=== PATIENT | female | born 1995 | race Caucasian/White ===

== ENCOUNTER 2023-03-17 15:40 | Emergency (ER) | payer OTHER, SELFPAY ==
[2023-03-17 15:49] VITALS: BP 115/55; PULSE 88; RESP 18; TEMP 36; O2SAT 98; BMI 28.3
--- NOTE | 2023-03-17 16:12 | DI.CT.S_ITS ---
PROCEDURE: CT KIDNEY URETER BLADDER (KUB) INDICATIONS: flank pain left TECHNIQUE: Axial sections were acquired from the lung bases to the pubic symphysis. Coronal and sagittal reformats were performed. For radiation dose reduction, the following was used: automated exposure control, adjustment of mA and/or kV according to patient size. COMPARISON: None. FINDINGS: Image quality: Good Lower chest: Minimal basal atelectasis. No hiatal hernia. Normal heart size partially seen. Solid organs: Liver is unremarkable on this noncontrast study. Gallbladder is unremarkable. No pathologic dilation of the biliary tree or pancreatic duct. No splenomegaly. No adrenal nodules. No hydronephrosis on the right. No calcified stones on the right. Mild left perinephric and periureteral fat stranding and hydronephrosis. A 2 mm stone is seen at the left UVJ. Vessels and lymph nodes: No pathologic lymph nodes by size criteria. No abdominal aortic aneurysm. Bowel and peritoneum: Mildly distended stomach. No evidence of small bowel obstruction. Normal diameter appendix. No abscess or ascites. Body wall: Unremarkable Pelvis: Mild bladder wall thickening, but not well evaluated due to under distension. Reproductive organs are not well evaluated on this study, overall physiologic appearing. Bones: No acute or suspicious osseous finding. IMPRESSION: Mild left periureteral and perinephric fat stranding with hydronephrosis secondary to a 2 mm left UVJ calcified obstructing stone. Mild bladder wall thickening, difficult to evaluate due to under distension. Correlate with urinalysis to assess for superimposed infection. Other findings as above. Dictated by: Trung Cardoza M.D. on 03/17/2023 at 16:49 Approved by: Trung Cardoza M.D. on 03/17/2023 at 16:53
[2023-03-17 18:08] LABS: Add Manual Diff / Slide Review NO; Basophils Absolute Auto 0 /uL (0-100); Basophils Percent Auto 0.3 % (0-2); Eosinophils Absolute Auto 0 /uL (0-450); Hematocrit 43.1 % (36-46); Hemoglobin 14.8 g/dL (12.0-16.0); Lymphocytes Absolute Auto 1000 /uL (1100-4500); Lymphocytes Percent Auto 7.9 % (25-40); Mean Corpuscular HGB Conc 34.3 % (30-36); Mean Corpuscular Hemoglobin 29.2 PG (26-34); Monocytes Absolute Auto 700 /uL (0-900); Monocytes Percent Auto 5.3 % (3-14); Neutrophils Absolute Auto 10800 /uL (1500-7000); Neutrophils Percent Auto 86.5 % (50-75); Platelet Count 235 X10^3/uL (150-400); Red Blood Cell Count 5.07 X10^6/uL (4.0-5.2); Red Cell Distribution Width 13.3 % (11.6-14.8); White Blood Cell Count 12.5 X10^3/uL (4.5-11.0)
--- NOTE | 2023-03-17 18:37 | ED_ITS ---
HPI - Abdominal Pain General Chief Complaint: Abdominal Pain Stated Complaint: Lt Flank Pain Time Seen by Provider: 03/17/23 17:39 Source: patient and family Mode of arrival: EMS History of Present Illness HPI narrative: 27-year-old female smoker with history of recurrent UTIs presents by air medical transport for evaluation of left flank pain which started today. She would initially presented to an outside facility in had labs drawn and urine which was negative for signs of infection and . They have concern for kidney stone and there CTs down so she was flown here for further evaluation. Her pain is severe and colicky in nature without obvious provocation or palliation. It radiates down into her groin. She denies vaginal bleeding or discharge. She is had no dysuria, frequency or urgency. She has had nausea and occasional vomiting. Prior to her arrival she had some Toradol and Dilaudid. Related Data Previous Rx's Medication Instructions Recorded cephalexin 500 mg capsule 500 mg PO Q6H 7 days #28 caps 03/17/23 hydrocodone 5 mg-acetaminophen 325 1 tab PO Q4-6H PRN pain #10 tabs 03/17/23 mg tablet ketorolac 10 mg tablet 10 mg PO Q6H PRN pain #14 tabs 03/17/23 ondansetron 4 mg disintegrating 4 mg PO TID-QID PRN nausea and 03/17/23 tablet vomiting #10 tabs tamsulosin 0.4 mg capsule (Flomax) 0.4 mg PO DAILY #30 caps 03/17/23 Allergies Allergy/AdvReac Type Severity Reaction Status Date / Time No Known Drug Allergies Allergy Verified 03/17/23 15:49 Review of Systems Review of Systems Narrative: GENERAL: Denies chills, fatigue, malaise, fever, sweats. HEENT: Denies sinus pain, ear pain, sore throat, difficulty swallowing, dizziness. RESPIRATORY: Denies dyspnea, cough, wheezing, hemoptysis, sputum. CARDIOVASCULAR: Denies chest pain, palpitations, orthopnea, edema, GASTROINTESTINAL: Denies nausea, vomiting, abdominal pain, diarrhea, constipation, melena. : See HPI MUSCULOSKELETAL: denies weakness, joint pain, or bony pain SKIN: Denies rash, skin lesions, or other NEUROLOGIC: Denies weakness, headache, numbness, change in speech, confusion, seizures, incoordination. PSYCHIATRIC: No concerning psychosocial issues. 12 point review of systems is negative except for those stated above Patient History Social History Smoking Status: Current every day smoker Smoking Status: Current every day smoker tobacco type: cigarettes and vaping alcohol intake frequency: a few times a week Substance Use Type: marijuana Exam Narrative Exam Narrative: GENERAL: [27] year old patient appears stated age. Well-developed patient, in mild distress. HEAD: Atraumatic. Normocephalic. EYES: Pupils equal round and reactive. Extraocular motions intact. No scleral icterus. No injection or drainage. ENT: Nose without bleeding, purulent drainage. Throat without erythema, tonsillar hypertrophy or exudate. Airway patent. NECK: Trachea midline. Non tender CARDIOVASCULAR: Regular rate and rhythm without murmurs, gallops, or rubs. RESPIRATORY: Clear to auscultation. Breath sounds equal bilaterally. No wheezes, rales, or rhonchi. GASTROINTESTINAL: Abdomen soft, non-tender, nondistended. EXTREMITIES: No edema or joint tenderness. BACK: Nontender without deformity or crepitance. No flank tenderness. NEURO: AOx3. SKIN: No rash or erythema of visible areas Initial Vital Signs Initial Vital Signs: Vital Signs Temperature 96.8 F L 03/17/23 15:49 Pulse Rate 88 03/17/23 15:49 Respiratory Rate 18 03/17/23 15:49 Blood Pressure 115/55 L 03/17/23 15:49 Pulse Oximetry 98 03/17/23 15:49 Oxygen Delivery Method Room Air 03/17/23 15:49 Course Orders Ordered: ED Orders 03/17/23 16:12 CT kidney ureter bladder (KUB) Stat 03/17/23 17:40 CMP [Comprehensive Metabolic Panel] Stat 03/17/23 18:00 Test Serum,Qual Stat 03/17/23 18:10 CBC Auto Diff [Complete Blood Count AUTO DIFF] Stat 03/17/23 19:24 Urine Microscopic Stat Sodium Chloride (Normal Saline 0.9%) 1,000 mls @ 1,000 mls/hr IV BOLUS ONE Stop: 03/17/23 19:37 Last Admin: 03/17/23 18:55 Dose: 1,000 mls/hr Documented By: KM Discontinued Medications Lidocaine HCl 5 ml/ Sodium (Chloride) 55 mls @ 330 mls/hr IV NOW ONE Stop: 03/17/23 18:39 Last Admin: 03/17/23 18:55 Dose: 330 mls/hr Documented By: ANTONIO Ketorolac Tromethamine (Ketorolac 30 Mg/Ml Vial) 15 mg IV NOW ONE Stop: 03/17/23 18:39 Last Admin: 03/17/23 19:00 Dose: 15 mg Documented By: ANTONIO Ondansetron HCl (Ondansetron 4 Mg/2 Ml Inj) 4 mg IV NOW ONE Stop: 03/17/23 18:39 Last Admin: 03/17/23 19:01 Dose: 4 mg Documented By: ANTONIO Vital Signs Vital signs: Vital Signs - 8 hr 03/17/23 15:49 03/17/23 18:57 Temperature 96.8 F L Pulse Rate 88 61 Respiratory Rate 18 16 Blood Pressure 115/55 L 127/56 L Pulse Oximetry 98 100 Oxygen Delivery Method Room Air Room Air MDM - Abdominal Pain Lab Data 03/17/23 18:10 Labs: Lab Results 03/17/23 03/17/23 Range/Units 18:00 18:10 WBC 12.5 H (4.5-11.0) X10^3/uL RBC 5.07 (4.0-5.2) X10^6/uL Hgb 14.8 (12.0-16.0) g/dL Hct 43.1 (36-46) % MCV 85.0 (80-100) fL MCH 29.2 (26-34) PG MCHC 34.3 (30-36) % RDW 13.3 (11.6-14.8) % Plt Count 235 (150-400) X10^3/uL Neut % (Auto) 86.5 H (50-75) % Lymph % (Auto) 7.9 L (25-40) % [place] % (Auto) 5.3 (3-14) % Eos % (Auto) 0.0 L (2-4) % Baso % (Auto) 0.3 (0-2) % Neut # (Auto) 77664 H (4441-3791) /uL Lymph # (Auto) 1000 L (9501-8497) /uL [place] # (Auto) 700 (0-900) /uL Eos # (Auto) 0 (0-450) /uL Baso # (Auto) 0 (0-100) /uL Serum , Qual Negative (Negative) Point of care testing: Point of Care Testing Test Results Negative Urine Dip Bedside Urine Glucose Negative Bedside Urine Bilirubin - Negative Bedside Urine Ketone + 15 Urine Specific [place] 1.025 Bedside Urine Occult Blood ++ Bedside Urine pH 6.0 Bedside Urine Protein - Negative Bedside Urine Nitrite - Negative Bedside Urine Leukocytes - Negative Esterase Imaging Data CT scan - abdomen/pelvis: Radiologist's Impression: IMPRESSION:? Mild left periureteral and perinephric fat stranding with hydronephrosis secondary to a 2 mm left UVJ calcified obstructing stone. Mild bladder wall thickening, difficult to evaluate due to under distension. Correlate with urinalysis to assess for superimposed infection. MDM Narrative Medical decision making narrative: CC: 27-year-old female with left flank pain Complicating co-morbidities: Frequent UTIs Data collected from: Patient Medical records reviewed: Prior notes reviewed in our EMR Differential considered, but not limited to: UTI versus pyelonephritis versus kidney stone versus ovary versus other Exam documented above, pertinent findings include: Heart rate regular, lungs clear, abdomen is soft, no flank pain Lab Test results independently reviewed as above. Pertinent findings: Slight leukocytosis with relative left shift, chemistries reviewed from outside facility without evidence of renal failure, urine without signs of infection or Imaging studies independently reviewed: CT KUB notes mild left periureteral and perinephric stranding with hydronephrosis secondary to 2 mm left UVJ stone Treatments: Fluids, Toradol, lidocaine and Zofran Re-evaluations: Patient with significant improvement Discussion: Patient with colicky left flank and left groin pain is found to have a 2 mm mildly obstructing stone. She does have a slight elevation in her white blood cells and some inflammatory change on imaging but urine demonstrates no sign of infection. She has no signs of sepsis, pain is well controlled and there is no sign of renal failure. Given her history of frequent UTIs and elevation of white cells I am sending a prescription for antibiotics as well. She is been given extensive return precautions which include but are not limited to worsening pain, persistent vomiting, fever, shaking chills or other concerning symptoms. Disposition: see below, along with detailed discharge instructions that have been reviewed with patient as well as indications for ED re-evaluation and additional outpatient follow up Discharge Plan Departure Patient Disposition: Home Clinical Impression: Calculus of right kidney Instructions: DI for Kidney Stones Activity Restrictions/Additional Instructions: *You have been diagnosed with [right-sided 2 mm kidney stone] *What to do: *Please continue to take your regular medications as directed. [x ] New medication prescriptions sent to your pharmacy: [[facility]] [ ] New medication written as a paper prescription [ ] No new medications given *Please follow up with your primary care provider in 2-3 days, call for an appointment. Let them know you were seen in the Emergency Department and that we ask that you be seen in follow up. We will electronically transmit a record of today's note if your PCP is in our system * as we discussed I have included the contact information for Dr. Mae with the local urology group. I will electronically transmitted a copy of today's note, please call the office and let them know you were seen in the emergency department and we would like you seen in follow-up. *If you do not have a primary care provider please contact the [facility] Resource line at [phone]. They will ask some questions about your medical history and help get you set up with a doctor in the community. *Return to Emergency Department if you should have any new, worsening or concerning symptoms, such as [fever greater than 101 F, shaking chills, worsen ing pain, persistent vomiting or other bothersome symptoms] You have been prescribed a short course of narcotic medications. These are potentially dangerous and addictive medications that should be used carefully. While on these medications you cannot drive or operate heavy machinery. Additionally, you cannot sign legal documents or perform any duties such as this. Many people get constipated on narcotic medications so it would be advisable to discuss stool softeners with the pharmacist when you worm picker your prescription. Please understand that we cannot provide further refills of narcotics or controlled substances through the ED and your pain management will need to be through your Primary Care Provider Prescriptions: New hydrocodone-acetaminophen 5-325 mg tablet 1 tab PO Q4-6H PRN (Reason: pain) Qty: 10 0RF ketorolac 10 mg tablet 10 mg PO Q6H PRN (Reason: pain) Qty: 14 0RF tamsulosin [Flomax] 0.4 mg capsule 0.4 mg PO DAILY Qty: 30 0RF cephalexin 500 mg capsule 500 mg PO Q6H 7 Days Qty: 28 0RF ondansetron 4 mg tablet,disintegrating 4 mg PO TID-QID PRN (Reason: nausea and vomiting) Qty: 10 0RF Referrals: Iesha Mae MD [Physician] - Stand Alone Forms: Patient Portal/API
[2023-03-17 18:51] LABS: Pregnancy Test Serum,Qual Negative (Negative)
[2023-03-17] MEDS: LIDOCAINE 2% (PF) 5 ML in SODIUM CHLORIDE 0.9% 50 ML 330 ML IV (18:55)
[2023-03-17] MEDS: SODIUM CHLORIDE 0.9% 1,000 ML 1000 ML IV (18:55)
[2023-03-17 18:57] VITALS: BP 127/56; PULSE 61; RESP 16; O2SAT 100
[2023-03-17] MEDS: KETOROLAC 30 MG/ML VIAL 15 MG IV (19:00)
[2023-03-17] MEDS: ONDANSETRON 4 MG/2 ML INJ IV (19:01)
[2023-03-17 19:50] LABS: Bacteria Urine Many (>30); Culture Indicated Urine Specimen Cultured; RBC Urine 1-5/HPF (0-5/HPF); Squamous Epithelial Cell Urine 1-5 /HPF (0-5/HPF); WBC Urine 5-10/HPF (0-5/HPF)
[2023-03-17 22:49] LABS: Alanine Aminotransferase 20 IU/L (<35); Albumin 4.9 g/dL (3.5-5.0); Albumin Globulin Ratio 1.3 (1.0-2.8); Alkaline Phosphatase 77 U/L (38-126); Aspartate Aminotransferase 24 IU/L (14-36); BUN Creatinine Ratio 22.9 (6-22); Bilirubin Total 0.5 mg/dL (0.2-1.3); Blood Urea Nitrogen 19 mg/dL (7-17); Calcium 10.2 mg/dL (8.4-10.2); Carbon Dioxide 23 mmol/L (22-32); Chloride 103 mmol/L (98-107); Estimated Glomerular Filt Rate > 60 mL/min (>60); Globulin 3.9 g/dL (1.7-4.1); Glucose 113 mg/dL (70-100); HEMOLYSIS < 15 (0-50); Potassium 4.4 mmol/L (3.4-5.1); Sodium 139 mmol/L (137-145); Total Protein 8.8 g/dL (6.3-8.2)
== END 2023-03-17 19:43 | disposition home or self-care (01) ==
PROVIDERS: Emergency Medicine; Emergency Provider Emergency Medicine
DX: N20.0 Calculus of kidney (principal)
CPT/HCPCS: 36415; 74176; 80053; 81003; 81015; 81025; 84703; 85025; 87086; 96365; 96375; 99283; 99284; J1885; J2405